=== PATIENT | male | born 1935 | race Two or more races ===

== ENCOUNTER → 2016-10-16 | Outpatient (CLI) | payer MEDICARE, OTHER ==
[~2016-10-16] MED LIST: ASPIRIN EC81 MG ORAL; CRESTOR10 M2 ORAL; DEXILANT60 MG ORAL; FLOMAX0.4 MG ORAL; LEXAPRO10 MG ORAL; LINZESS145 MCG PO; MOBIC7.5 MG ORAL; NORVASC5 MG ORAL; PREVACID30 MG ORAL; TRAMADOL HCL50 MG ORAL
[2016-10-16 14:32] VITALS: BP 131/66
--- NOTE | 2016-10-16 14:51 | GI Progress Note ---
Assessment/Plan Problems: (1) S/P partial gastrectomy ICD Codes: Z90.3 - Acquired absence of stomach [part of] SNOMED: 96293444, 778622327 (2) GERD (gastroesophageal reflux disease) ICD Codes: K21.9 - Gastro-esophageal reflux disease without esophagitis SNOMED: 988861493 (3) Constipation ICD Codes: K59.00 - Constipation, unspecified SNOMED: 29032524 (4) Gastric ulcer ICD Codes: K25.9 - Gastric ulcer, unspecified as acute or chronic, without hemorrhage or perforation SNOMED: 833650362 (5) Iron deficiency ICD Codes: E61.1 - Iron deficiency SNOMED: 15361742 (6) HTN (hypertension) ICD Codes: I10 - Essential (primary) hypertension SNOMED: 37576094 Status: stable Status Narrative Seen with Dr. Burrell. Assessment/Plan rx [facility] refill Dexilant RTC prn repeat colon x 1 year Subjective Gastrointestinal/Abdominal: Reports: no symptoms Objective Last 24 Hour Vital Signs Date Time Temp Pulse Resp B/P Pulse Ox O2 Delivery O2 Flow Rate FiO2 10/16/16 14:32 97.6 64 16 131/66 General Appearance: no apparent distress, alert Cardiovascular: normal rate Respiratory/Chest: normal breath sounds, no respiratory distress Abdominal Exam: normal bowel sounds, non tender, soft Extremities: normal range of motion, non-tender Objective Last colonoscopy 08/08. PMH: gastric ulcer, s/p partial gastrectomy, HTN, high cholesterol, BPH, and GERD. Estelita De Jesus N.P. Oct 16, 2016 14:51
== END | disposition home or self-care (01) ==
LOC: PAN 14:22
DX: K21.9 Gastro-esophageal reflux disease without esophagitis (principal); K59.00 Constipation, unspecified; K25.9 Gastric ulcer, unspecified as acute or chronic, without hemorrhage or perforation; E61.1 Iron deficiency; I10 Essential (primary) hypertension; Z90.3 Acquired absence of stomach [part of]
CPT/HCPCS: 99211

== ENCOUNTER 2017-09-25 15:00 | Outpatient (CLI) | payer MEDICARE, OTHER ==
[2017-09-25 15:24] VITALS: BP 134/72
--- NOTE | 2017-09-25 16:00 | GI Progress Note ---
Assessment/Plan Problems: (1) GERD (gastroesophageal reflux disease) ICD Codes: K21.9 - Gastro-esophageal reflux disease without esophagitis SNOMED: 366808796 (2) Iron deficiency ICD Codes: E61.1 - Iron deficiency SNOMED: 83551427 (3) Constipation ICD Codes: K59.00 - Constipation, unspecified SNOMED: 77882996 Status: stable Status Narrative Seen with Dr. Burrell. Assessment/Plan cont [facility] cont Dexilant RTC prn recommend colonoscopy, patient refused at this time. Subjective Gastrointestinal/Abdominal: Reports: constipated Objective Last 24 Hour Vital Signs Date Time Temp Pulse Resp B/P (MAP) Pulse Ox O2 Delivery O2 Flow Rate FiO2 09/25/17 15:24 97.6 86 16 134/72 95 General Appearance: WD/WN, no apparent distress, alert Cardiovascular: normal rate Respiratory/Chest: normal breath sounds, no respiratory distress Abdominal Exam: normal bowel sounds, non tender, soft Extremities: normal range of motion, non-tender Estelita De Jesus N.P. Sep 25, 2017 16:00
== END 2017-09-25 15:32 | disposition home or self-care (01) ==
LOC: PAN 15:00
DX: K21.9 Gastro-esophageal reflux disease without esophagitis (principal); E61.1 Iron deficiency; K59.00 Constipation, unspecified
CPT/HCPCS: 99213